=== PATIENT | male | born 1930 | race Caucasian/White ===

== ENCOUNTER 2018-11-01 15:32 | Emergency (ER) | payer BC, MEDICARE ==
[~2018-11-01] VITALS: Ht 195.6 cm; Wt 80.9 kg
[~2018-11-01 15:32] MED LIST: BACLOFEN10 MG PO; BAYER ASA325 MG PO; CALCIUM + D600 MG OR; CALCIUM + D600 MG PO; CEPHALEXIN500 MG PO; COLACE100 MG PO; COREG CR80 MG PO; DILAUDID 2MG2 MG/TA1 PO; DOXY-CAPS100 MG PO; DOXYCYCL HYC100 M4 PO; FENOFIBRATE160 MG PO; FERROUS SULF325 M1 PO; FISH OIL1000 MG PO; GLIPIZIDE5 MG PO; LANOXIN0.125 MG PO; LASIX 20 MG20 MG/TAB PO; LASIX 80 MG TAB80 M1 PO; LASIX80 MG OR; LOFIBRA160 MG PO; LORTAB 5/3255 MG PO; LOTENSIN10 MG OR; LOTENSIN10 MG PO; METFORMIN500 MG PO; MULTI VIT PO; MULTIVITAMI9 PO; PLAVIX75 MG PO; PRAVACHOL20 MG OR; PRAVASTATIN40 MG PO; SOYA LECITHN1200 MG PO; [UNRECOGNIZED DRUG - OTHER] PO
[2018-11-01] MEDS ORDERED: ACETAMINOP160 MG/5 M PO (16:07)
[2018-11-01 17:12] VITALS: BP 104/55
[2018-11-01] MEDS ORDERED: BACTRIM DS1 TAB PO (17:50)
== END 2018-11-01 17:56 | disposition home or self-care (01) | DRG 605 ==
LOC: ED 15:32
PROC: 0HQFXZZ Repair Right Hand Skin, External Approach (ICD-10-PCS; principal; 2018-11-01)
DX: S61.012A Laceration without foreign body of left thumb without damage to nail, initial encounter (principal); S61.011A Laceration without foreign body of right thumb without damage to nail, initial encounter; W31.2XXA Contact with powered woodworking and forming machines, initial encounter; Y93.89 Activity, other specified; Y92.009 Unspecified place in unspecified non-institutional (private) residence as the place of occurrence of the external cause

== ENCOUNTER 2018-11-28 13:00 | Outpatient (RCR) | payer BC, MEDICARE ==
[~2018-11-28 13:00] MED LIST changes: +ACETAMINOP160 MG/5 M PO; +BACTRIM DS1 TAB PO
== END 2018-11-28 14:00 | disposition home or self-care (01) | DRG 561 ==
LOC: OT 13:00
PROVIDERS: ATTEND Orthopaedic Surgery Hand Surgery
DX: Z47.89 Encounter for other orthopedic aftercare (principal); S64.49 Injury of digital nerve of other finger; S66.108 Unspecified injury of flexor muscle, fascia and tendon of other finger at wrist and hand level

== ENCOUNTER 2020-06-11 20:05 | Emergency (ER) | payer MEDICARE ==
[~2020-06-11] VITALS: Ht 188 cm; Wt 81.0 kg
[2020-06-11 20:10] VITALS: BP 00/00
== END 2020-06-11 20:18 | disposition expired ==
LOC: ED 20:05
PROC: 5A12012 Performance of Cardiac Output, Single, Manual (ICD-10-PCS; principal; 2020-06-11)
DX: I46.9 Cardiac arrest, cause unspecified (principal); I49.01 Ventricular fibrillation; I47.2 Ventricular tachycardia; I11.0 Hypertensive heart disease with heart failure; I50.9 Heart failure, unspecified; I42.9 Cardiomyopathy, unspecified; Z95.810 Presence of automatic (implantable) cardiac defibrillator